=== PATIENT | male | born 1990 | race Caucasian/White ===

== ENCOUNTER 2022-01-30 06:36 | Emergency (ER) | payer MEDICAID ==
[~2022-01-30] VITALS: Ht 162.6 cm; Wt 104.3 kg
[2022-01-30 06:36] VITALS: BP_SYST 140
--- NOTE | 2022-01-30 06:36 | NUR ---
Patient bib [facility] to bed 4 for evluation and treatment
--- NOTE | 2022-01-30 06:41 | NUR ---
First contact with pt. Pt presents to the ER for medical clearance. Pt states " my foot hurts so bad I cant even walk on it, the pain is a 10". Pt sitting in chair and is calm and cooperative, S1,S2 regular, resp e/u, mentation is intact. Awaiting reevaluation and further orders.
[2022-01-30 06:50] VITALS: BP_SYST 148
== END 2022-01-30 07:28 ==
LOC: SED 06:36
DX: S90.32XA Contusion of left foot, initial encounter (principal); W20.8XXA Other cause of strike by thrown, projected or falling object, initial encounter; Y93.89 Activity, other specified; Y92.89 Other specified places as the place of occurrence of the external cause; Y99.8 Other external cause status
CPT/HCPCS: 99283